=== PATIENT | female | born 1995 | race Caucasian/White ===

== ENCOUNTER 2020-08-25 21:04 | Emergency (ER) | payer BC ==
[2020-08-25] MEDS ORDERED: Ciprofloxacin 500 MG Tab ONE (22:00)
--- NOTE | 2020-08-25 22:51 | ER ---
HISTORY OF PRESENT ILLNESS: A 25-year-old lady who comes in with her mother with complaints of urinary frequency, dysuria and hematuria symptoms that started yesterday. The patient did have some diarrhea issues just before this and now she is having urinary tract symptoms. She has not been running a fever. She denies any problems with back pain. She states she only has history of a couple of UTIs in the past. OBJECTIVE: GENERAL APPEARANCE: The patient is awake and alert. No obvious distress. VITAL SIGNS: Reviewed as listed. Physical exam is minimal. ABDOMEN: Soft. Minimal discomfort over the bladder area. SKIN: Warm and dry. LAB AND X-RAY STUDIES: UA does reveal UTI. DIAGNOSIS: Urinary tract infection. TREATMENT PLAN: Cipro 500 mg b.i.d. will be started for 5 days. The patient is to push fluids. Use Tylenol or ibuprofen for pain. She declined Pyridium and follow up should be in 2-3 days if she is not improving. She is to increase her water intake using small frequent drinks as well. CRS/MODL /[id number]
== END 2020-08-25 22:25 | disposition home or self-care (01) ==
LOC: LB.ED 21:04
DX: N39.0 Urinary tract infection, site not specified (principal)
CPT/HCPCS: 81001; 99283; A9270-GY